=== PATIENT | female | born 1975 | race Caucasian/White ===

== ENCOUNTER 2018-11-12 06:12 | Day surgery (SDC) | payer BC, MEDICAID ==
[~2018-11-12 06:12] MED LIST: LACTATED RINGERS 1,000 ML IV SCH; MIDAZOLAM 2 MG/2 ML INJ IV NR
[2018-11-12] MEDS ORDERED: BACTERIOSTATIC SODIUM CHLORIDE 0.9% 30 ML VIAL INFILTRATI ONE (06:41)
[2018-11-12 07:16] LABS: BUN/Creatinine Ratio 28; Blood Urea Nitrogen 14 mg/dL (7-17); Calcium 8.3 mg/dL (8.4-10.2); Hemolysis Index 21
[2018-11-12] MEDS ORDERED: PROPOFOL 200 MG/20 ML VIAL IV ONE (07:24)
[2018-11-12] MEDS ORDERED: LIDOCAINE MPF (2%) 20 MG/1 ML VIAL 5 ML ONE (07:26)
--- NOTE | 2018-11-12 07:27 | Anesthesia Consultation ---
Anesthesia Consult and Med Hx Date of service: 11/12/18 - Airway Anesthetic Teeth Evaluation: Good ROM Head & Neck: Adequate (pain at site of neck pass with extension but normal ROM) Mental/Hyoid Distance: Adequate Mallampati Class: Class III Intubation Access Assessment: Possibly Difficult - Pulmonary Exam CTA: Yes - Cardiac Exam Cardiac Exam: RRR - Pre-Operative Health Status ASA Pre-Surgery Classification: ASA2 Proposed Anesthetic Plan: General - Pulmonary Hx Smoking: No (former smoker quit 2012) Hx Respiratory Symptoms: No - Cardiovascular System Hx Hypertension: Yes (took amlodipine this morning) Hx Heart Attack/AMI: No - Central Nervous System Hx Seizures: No CVA: No - Gastrointestinal Hx Gastroesophageal Reflux Disease: No - Endocrine Hx Renal Disease: Yes (hypokalemia) Hx Liver Disease: No Hx Insulin Dependent Diabetes: No Hx Thyroid Disease: Yes (s/o thyroidectomy for goiter; no supplements) - Hematic Hx Anemia: No - Other Systems Hx Alcohol Use: Yes (OCCAS) Hx Obesity: Yes (BMI 32) - Additional Comments Anesthesia Medical History Comments: No hx anesthetic complications.
--- NOTE | 2018-11-12 07:27 | Anesthesia Day of Surgery ---
Anesthesia Day of Surgery - Day of Surgery Patient Examined: Yes Patient H&P Reviewed: Yes Patient is NPO: Yes
[2018-11-12] MEDS ORDERED: ROCURONIUM 50 MG/5 ML INJ IV ONE (07:28)
[2018-11-12] MEDS ORDERED: BUPIVACAINE-EPINEPHRINE/PF 0.5%-1:200,000 (30 ML) VIAL INFILTRATI ONE ×3 (07:29→08:31)
[2018-11-12] MEDS ORDERED: VANCOMYCIN/NS 1 GM/250 ML 1 GM/250 ML BAG IV SCH (07:30)
[2018-11-12] MEDS ORDERED: dexAMETHasone 20 MG/5 ML VIAL ONE (08:06)
[2018-11-12] MEDS ORDERED: ONDANSETRON 4 MG/2 ML INJ ONE (08:06)
[2018-11-12] MEDS ORDERED: GLYCOPYRROLATE 0.4 MG/2 ML INJ ONE (08:36)
[2018-11-12] MEDS ORDERED: NEOSTIGMINE 10MG/10 ML INJ MDV ONE (08:36)
--- NOTE | 2018-11-12 08:48 | Discharge Summary ---
Short Stay Discharge Plan Activity: other (june d/c when stable. cl liq. advance to solid diet as jennifer. keep dressings dry x 5 days. change drain tube q 8 hrs) Diet: advance as tolerated Wound: drain care as instructed Additional Instructions: aleve I po q 6-8 hrs prn for breakthrough pain bring all removed tubes when coming to office this Sat Follow up with: SHELBI CARDENAS MD [Staff Physician] - 11/14/18
[2018-11-12] MEDS: fentaNYL 100 MCG/2 ML INJ IV PRN ×2 (09:36→09:45)
--- NOTE | 2018-11-12 09:42 | Operative Report ---
PREOPERATIVE DIAGNOSIS: Posterior neck mass. POSTOPERATIVE DIAGNOSIS: Posterior neck mass. PROCEDURE: Excision of aforementioned neck mass. FINDINGS: Lipomatous type indurated mass extending down to the muscle fascia. SURGEON: Jed Hutson MD ANESTHESIA: General. ESTIMATED BLOOD LOSS: Minimal. DRAINS: One 10 TLS drain left. COMPLICATIONS: No complications. PROCEDURE IN DETAIL: The patient was taken to the operating room, placed in a prone position, prepped and draped in usual sterile fashion. The palpable subcutaneous mass had been previously outlined with a marking pencil. A 15 blade was used to incise skin and subcutaneous tissue. Needle tip electrocautery was used to dissect down to the mass. A mass was lipomatous type in nature, but also with chronic scarring and indurated tissue surrounding it. This extended down to the muscle fascia. The entire mass was then removed with needle tip electrocautery as well as sharp and blunt dissection. The specimen was sent to pathology. The area was irrigated copiously and dried. Checked for hemostasis and noted to be dry. A 10 TLS drain was left draining the subcutaneous space. The drain was brought out through a separate stab incision and secured to the skin with a 2-0 silk suture. The subcutaneous was closed with interrupted 3-0 Vicryl suture. The skin was closed with interrupted 4-0 Prolene. Fluffs and pressure dressings applied. A 0.5% Marcaine was also infiltrated over the area for postoperative pain relief. The patient tolerated the procedure well and left the OR in stable condition. JOB# [id number] HERBER/NANO
[2018-11-12] MEDS ORDERED: HYDROcodone/ACETAMINOPHEN 5-325 MG TAB PO PRN (09:51)
--- NOTE | 2018-11-12 10:18 | Post Anesthesia Evaluation ---
- Post Anesthesia Evaluation Patient Participated: Yes Airway Patent: Yes Stable Respiratory Function: Yes Nausea/Vomiting: No Temp > 96.8F: Yes Pain Manageable: Yes Adequeate Hydration: Yes Anesthesia Complications: No
[2018-11-12 10:46] VITALS: BP 114/62
== END 2018-11-12 11:10 | disposition home or self-care (01) ==
LOC: OR 06:12
PROVIDERS: ATTEND Surgery
DX: R22.1 Localized swelling, mass and lump, neck (principal); I10 Essential (primary) hypertension; E66.9 Obesity, unspecified; Z72.89 Other problems related to lifestyle; Z68.32 Body mass index [BMI] 32.0-32.9, adult; Z88.0 Allergy status to penicillin; Z79.899 Other long term (current) drug therapy; Z87.891 Personal history of nicotine dependence; Z90.49 Acquired absence of other specified parts of digestive tract; Z98.890 Other specified postprocedural states; Z98.891 History of uterine scar from previous surgery; Z80.3 Family history of malignant neoplasm of breast
CPT/HCPCS: 21552; 36415; 80048; 81025; 88304; J1100; J2250; J2405; J2704; J2710; J3010; J3370; J7120

== ENCOUNTER 2021-04-11 10:08 | Outpatient (CLI) | payer BC ==
--- NOTE | 2021-04-12 13:13 | Mammography Report ---
DIGITAL SCREENING MAMMOGRAM WITH CAD, 04/11/2021 CLINICAL INFORMATION / INDICATION: Routine screening mammography. TECHNIQUE: Digital bilateral 2D mammography was obtained in the craniocaudal and mediolateral obliqu e projections. This examination was interpreted with the benefit of Computer-Aided Detection analysis . COMPARISON: 11/05/2019 FINDINGS: Breast Density: The breasts are almost entirely fatty. No dominant mass, suspicious calcifications, or architectural distortion in either breast. No interval change. IMPRESSION: No mammographic evidence of malignancy. Follow up recommendation: Routine yearly BI-RADS Category 1: NEGATIVE A "normal" or negative report should not discourage follow up or biopsy of a clinically significant f inding. A written summary of these findings will be mailed to the patient. The patient will be entered into a mammography reporting system which will generate a reminder letter for the patient's next appointmen t at the appropriate interval. The [employer] recommends yearly mammograms starting at age 40 and continuing as l sujit as a woman is in good health. Breast MRI is recommended for women with an approximate 20-25% or greater lifetime risk of breast cancer, including women with a strong family history of breast or ova gema cancer or who have been treated for Hodgkin's disease. Signer Name: Di Doty MD Signed: 04/12/2021 1:09 PM Workstation Name: [id number]
== END 2021-04-11 10:09 | disposition home or self-care (01) ==
LOC: SPVWC 10:08
PROVIDERS: ATTEND Internal Medicine
DX: Z12.31 Encounter for screening mammogram for malignant neoplasm of breast (principal)
CPT/HCPCS: 77067